=== PATIENT | female | born 2000 ===

== ENCOUNTER 2021-06-26 07:31 | Emergency (ER) | payer MEDICAID, OTHER ==
[~2021-06-26] VITALS: Ht 165.1 cm; Wt 62.1 kg
[2021-06-26] MEDS ORDERED: ACETAMINOPHEN 325 MG TABLET ONE (07:58)
[2021-06-26] MEDS ORDERED: ACETAMINOPHEN 325 MG TABLET PO ONE (08:00)
[2021-06-26 08:09] VITALS: BP 120/48
== END 2021-06-26 08:09 | disposition home or self-care (01) ==
LOC: ER 07:34
DX: U07.1 COVID-19 (principal); Z82.49 Family history of ischemic heart disease and other diseases of the circulatory system
CPT/HCPCS: 99283; U0003; A4663